=== PATIENT | male | born 1935 | race Caucasian/White ===

== ENCOUNTER 2022-07-06 23:44 | Emergency (ER) | payer OTHER, MEDICARE ==
[~2022-07-06] VITALS: Ht 172.7 cm; Wt 104.4 kg
[~2022-07-06 23:44] MED LIST: COZAAR100 MG PO
[2022-07-07] MEDS ORDERED: VITAMIN D310 MC2
[2022-07-07] MEDS ORDERED: PRESERVISION L1 EAC1 PO
[2022-07-07] MEDS ORDERED: LOVASTATIN20 MG PO
[2022-07-07] MEDS ORDERED: WIXELA 100-501 EACH INH (00:01)
[2022-07-07] MEDS ORDERED: VAZALORE81 MG PO (00:01)
[2022-07-07] MEDS ORDERED: TORSEMIDE10 MG PO (00:01)
[2022-07-07] MEDS ORDERED: K-TAB ER20 MEQ PO (00:01)
[2022-07-07] MEDS ORDERED: VENTOLIN HFA18 GM INH (00:02)
[2022-07-07] MEDS ORDERED: SPIRIVA18 MCG INH (00:02)
[2022-07-07] MEDS ORDERED: MONTELUKAST SOD10 MG PO (00:02)
== END 2022-07-07 01:33 | disposition home or self-care (01) ==
LOC: ED 23:44
DX: S46.911A Strain of unspecified muscle, fascia and tendon at shoulder and upper arm level, right arm, initial encounter (principal); I10 Essential (primary) hypertension; J44.9 Chronic obstructive pulmonary disease, unspecified; W19.XXXA Unspecified fall, initial encounter; Z88.8 Allergy status to other drugs, medicaments and biological substances; Z79.899 Other long term (current) drug therapy; Z79.82 Long term (current) use of aspirin
CPT/HCPCS: 73030; 73060; 99284-25; A9270

== ENCOUNTER 2024-05-04 13:06 | Emergency (ER) | payer MEDICARE, OTHER ==
[~2024-05-04] VITALS: Ht 172.7 cm; Wt 104.3 kg
[~2024-05-04 13:06] MED LIST changes: +K-TAB ER20 MEQ PO; +LOVASTATIN20 MG PO; +MONTELUKAST SOD10 MG PO; +PRESERVISION L1 EAC1 PO; +SPIRIVA18 MCG INH; +TORSEMIDE10 MG PO; +VAZALORE81 MG PO; +VENTOLIN HFA18 GM INH; +VITAMIN D310 MC2; +WIXELA 100-501 EACH INH
[2024-05-04] MEDS ORDERED: ALBUTEROL/IPRATROPIUM 3 ML NEB INH ONE (13:30)
[2024-05-04 13:32] LABS: BASOPHILS 0.4 % (0-2); EOSINOPHILS 1.4 % (0-6); HEMATOCRIT 44.4 % (35.0-50.0); HEMOGLOBIN 15.5 g/dL (12.0-18.0); LYMPHOCYTES 4.9 % (24-44); MCH 35.3 (27-36); MONOCYTES 16.5 % (0-12); NEUTROPHILS 76.8 % (39-80); PLATELET COUNT 183 K/uL (140-440); RDW 13.2 (10.5-15.0)
[2024-05-04 13:58] LABS: ALBUMIN 3.2 g/dL (3.4-5.0); ALBUMIN/GLOBULIN RATIO 0.91 (1.1-2.4); ANION GAP 10.5 (7-21); BILIRUBIN, TOTAL 1.3 ng/dL (0.2-1.0); BUN/CREATININE RATIO 9.37 (6.0-28.6); CALCIUM 8.7 mg/dL (8.5-10.1); CREATININE, SERUM 0.96 mg/dL (0.70-1.30); MAGNESIUM 1.8 mg/dL (1.8-2.4); POTASSIUM 4.5 mmol/L (3.5-5.1); PROTEIN, TOTAL 6.7 g/dL (6.4-8.2)
[2024-05-04 15:44] VITALS: BP 111/59
--- NOTE | 2024-05-05 10:17 | EKG ---
[facility] [address] [facility] [place] [address] Signed Sinus rhythm with premature atrial complexes Otherwise normal ECG No previous ECGs available Confirmed by Raine Raza DO ([id number]) on 05/05/2024 10:17:29 AM Electronically Signed By: RAINE RAZA DO 05/05/24 1017 PATIENT NAME: RAMBO LEON Electrocardiogram DATE OF : 37 PHYSICIAN: RAINE RAZA DO REPORT #: [id number] REPORT IS CONFIDENTIAL AND NOT TO BE RELEASED WITHOUT AUTHORIZATION
== END 2024-05-04 15:45 | disposition home or self-care (01) ==
LOC: ED 13:06
PROVIDERS: Emergency Medicine
DX: R07.89 Other chest pain (principal); J44.9 Chronic obstructive pulmonary disease, unspecified; I25.2 Old myocardial infarction; I10 Essential (primary) hypertension; E78.5 Hyperlipidemia, unspecified; Z85.46 Personal history of malignant neoplasm of prostate; Z88.8 Allergy status to other drugs, medicaments and biological substances; Z79.82 Long term (current) use of aspirin; Z79.51 Long term (current) use of inhaled steroids; Z79.899 Other long term (current) drug therapy
CPT/HCPCS: 36415; 71045; 80053; 83735; 83880; 84484; 85025; 93005; 93010; 94640; 99285-25